=== PATIENT | male | born 1980 | race African-American/Black ===

== ENCOUNTER 2023-10-29 16:14 | Emergency (ER) | payer MEDICAID ==
[~2023-10-29] VITALS: Ht 170.2 cm; Wt 81.8 kg
[2023-10-29 16:49] VITALS: BP 135/61; PULSE 78; RESP 18; TEMP 98.1
[2023-10-29] MEDS ORDERED: POVIDONE-IODINE 10% 15 ML SOLUTION UD TP ONE (19:00)
[2023-10-29] MEDS ORDERED: LIDOCAINE 1% 10 ML VIAL PERC ONE (19:00)
[2023-10-29] MEDS ORDERED: 0.9% SODIUM CHLORIDE 1000 ML IRRIG SOLUTION BOTTLE IRRIG ONE (19:15)
[2023-10-29] MEDS ORDERED: SULF-261 PO (20:02)
[2023-10-29] MEDS ORDERED: SULFAMETHOX/TRIMETH DS 800-160 MG/TABLET PO ONE (20:15)
== END 2023-10-29 20:24 | disposition home or self-care (01) ==
LOC: EMS 16:18
DX: L03.011 Cellulitis of right finger (principal)
CPT/HCPCS: 99284; 26010; J3490; 99291